=== PATIENT | female | born 1990 | race Caucasian/White ===

== ENCOUNTER → 2018-09-25 | Outpatient (CLI) | payer OTHER ==
[2018-09-25 12:30] LABS: BASO % 0.3 % (0.0-1.0); EOS # 0.1 10^3/uL (0.0-0.50); EOS % 1.1 % (0.0-3.0); HEMATOCRIT 40.1 % (36.0-47.0); HEMOGLOBIN 13.5 g/dl (12.0-15.5); IMMATURE GRANULOCYTE % 0.4 % (0-3.0); LYMPH # 2.3 10^3/uL (1.5-6.5); LYMPH % 19.6 % (24.0-44.0); MEAN CORPUSCULAR HEMOGLOBIN 29.2 pg (27.0-33.0); MEAN CORPUSCULAR HGB CONC 33.7 g/dl (32.0-36.5); MEAN CORPUSCULAR VOLUME 86.6 fl (80.0-96.0); MONO # 0.7 10^3/uL (0.0-0.8); MONO % 5.8 % (0.0-5.0); NEUTROPHILS # 8.6 10^3/uL (1.8-7.7); NEUTROPHILS % 72.8 % (36.0-66.0); PLATELET COUNT, AUTOMATED 220 10^3/uL (150-450); RED BLOOD COUNT 4.63 10^6/uL (4.00-5.40); RED CELL DISTRIBUTION WIDTH 12.2 % (11.5-14.5); WHITE BLOOD COUNT 11.8 10^3/uL (4.0-10.0)
[2018-09-25 13:13] LABS: ALBUMIN 3.7 GM/DL (3.2-5.2); ALBUMIN/GLOBULIN RATIO 1.03 (1.00-1.93); ALKALINE PHOSPHATASE 127 U/L (45-117); ALT/SGPT 18 U/L (12-78); ANION GAP 8 MEQ/L (8-16); AST/SGOT 10 U/L (7-37); BILIRUBIN,TOTAL 0.5 MG/DL (0.2-1.0); BLOOD UREA NITROGEN 9 MG/DL (7-18); CALCIUM LEVEL 9.2 MG/DL (8.5-10.1); CARBON DIOXIDE LEVEL 29 MEQ/L (21-32); CHLORIDE LEVEL 102 MEQ/L (98-107); CREATININE FOR GFR 0.71 MG/DL (0.55-1.30); FREE T4 1.14 NG/DL (0.76-1.46); GLOMERULAR FILTRATION RATE > 60.0 (>60); GLUCOSE, FASTING 95 MG/DL (70-100); POTASSIUM SERUM 3.8 MEQ/L (3.5-5.1); SODIUM LEVEL 139 MEQ/L (136-145); TOTAL PROTEIN 7.3 GM/DL (6.4-8.2)
== END ==
LOC: M WUC 09:47
DX: I10 Essential (primary) hypertension (principal)
CPT/HCPCS: 84443

== ENCOUNTER → 2018-11-03 | Outpatient (CLI) | payer OTHER ==
[~2018-11-03] MED LIST: /LABE20TA; ACET50TA PO; ALBU17IN2; COLA100C5 PO; FERR325T3 PO; IBUP80TA PO; LABE20TAB PO; LABE300T PO; LOESTRIN24 PO; MOTR200T44 PO; ORTHOEVRA TOPICAL; PERCOCET PO; PNV-CAP5 PO; SING10TA31; TRAN200T PO; TYLE167L PO; YAZ PO; ZYRT10TA6; [UNRECOGNIZED DRUG - CODE] TOPICALLY; [UNRECOGNIZED DRUG - OTHER]; [UNRECOGNIZED DRUG - OTHER] VAGINALLY
[2018-11-03 12:32] LABS: BASO % 0.3 % (0.0-1.0); EOS # 0.1 10^3/uL (0.0-0.50); EOS % 1.9 % (0.0-3.0); HEMATOCRIT 38.8 % (36.0-47.0); HEMOGLOBIN 13.1 g/dl (12.0-15.5); LYMPH # 1.8 10^3/uL (1.5-6.5); LYMPH % 28.9 % (24.0-44.0); MEAN CORPUSCULAR HEMOGLOBIN 29.1 pg (27.0-33.0); MEAN CORPUSCULAR HGB CONC 33.8 g/dl (32.0-36.5); MEAN CORPUSCULAR VOLUME 86.2 fl (80.0-96.0); MONO # 0.4 10^3/uL (0.0-0.8); MONO % 6.4 % (0.0-5.0); NEUTROPHILS # 3.9 10^3/uL (1.8-7.7); NEUTROPHILS % 62.3 % (36.0-66.0); PLATELET COUNT, AUTOMATED 217 10^3/uL (150-450); WHITE BLOOD COUNT 6.3 10^3/uL (4.0-10.0)
[2018-11-03 12:43] LABS: ALBUMIN 3.5 GM/DL (3.2-5.2); ALT/SGPT 17 U/L (12-78); BILIRUBIN,TOTAL 0.5 MG/DL (0.2-1.0); BLOOD UREA NITROGEN 10 MG/DL (7-18); CALCIUM LEVEL 8.5 MG/DL (8.5-10.1); CARBON DIOXIDE LEVEL 25 MEQ/L (21-32); CHLORIDE LEVEL 107 MEQ/L (98-107); CHOLESTEROL LEVEL 165 MG/DL (<200); CHOLESTEROL RISK RATIO 3.928 (<5); CREATININE FOR GFR 0.63 MG/DL (0.55-1.30); FREE T4 1.04 NG/DL (0.76-1.46); GLOMERULAR FILTRATION RATE > 60.0 (>60); GLUCOSE, FASTING 91 MG/DL (70-100); HDL CHOLESTEROL 42 MG/DL (>40); LDL CHOLESTEROL 104 MG/DL (<100); NON-HDL-C 123 MG/DL; POTASSIUM SERUM 3.9 MEQ/L (3.5-5.1); SODIUM LEVEL 142 MEQ/L (136-145); TRIGLYCERIDES LEVEL 94 MG/DL (<150)
[2018-11-03 13:34] LABS: HEMOGLOBIN A1c 5.3 %
== END ==
LOC: M WUC 08:49
PROVIDERS: ATTEND Physician Assistant Medical
DX: I10 Essential (primary) hypertension (principal); E66.01 Morbid (severe) obesity due to excess calories

== ENCOUNTER → 2018-12-03 | Outpatient (REF) | payer OTHER | LOC: M SFHCPLAZ 13:36 | PROVIDERS: ATTEND Physician Assistant Medical | DX: I10 Essential (primary) hypertension (principal) ==

== ENCOUNTER → 2018-12-23 | Outpatient (CLI) | payer OTHER ==
[2018-12-23 20:06] LABS: ALBUMIN 3.6 GM/DL (3.2-5.2); ALT/SGPT 19 U/L (12-78); BILIRUBIN,TOTAL 0.1 MG/DL (0.2-1.0); BLOOD UREA NITROGEN 16 MG/DL (7-18); CALCIUM LEVEL 8.8 MG/DL (8.5-10.1); CARBON DIOXIDE LEVEL 27 MEQ/L (21-32); CHLORIDE LEVEL 106 MEQ/L (98-107); GLOMERULAR FILTRATION RATE > 60.0 (>60); GLUCOSE, FASTING 117 MG/DL (70-100); POTASSIUM SERUM 3.8 MEQ/L (3.5-5.1); SODIUM LEVEL 141 MEQ/L (136-145); TOTAL PROTEIN 7.1 GM/DL (6.4-8.2)
== END ==
LOC: M WUC 16:43
PROVIDERS: ATTEND Physician Assistant Medical
DX: I10 Essential (primary) hypertension (principal)

== ENCOUNTER 2019-11-23 09:51 | Emergency (ER) | payer OTHER ==
[~2019-11-23] VITALS: Ht 162.6 cm; Wt 181.3 kg
[~2019-11-23 09:51] MED LIST changes: -/LABE20TA; -ACET50TA PO; +LABE1TAB11; +LABE200T13 PO; -LABE20TAB PO; +MAPA500T17 PO; +OXYC1TAB23 PO
[2019-11-23] MEDS ORDERED: LABE10TAB (09:59)
[2019-11-23] MEDS ORDERED: CHLO125TA (09:59)
[2019-11-23] MEDS ORDERED: AMLO5TAB6 (09:59)
[2019-11-23] MEDS ORDERED: CLINDAMYCIN 900 MG in IV 1 EA IV ONE (11:00)
[2019-11-23 11:34] LABS: BASO % 0.3 % (0.0-1.0); EOS # 0.1 10^3/uL (0.0-0.5); EOS % 1.2 % (0.0-3.0); HEMATOCRIT 36.9 % (36.0-47.0); HEMOGLOBIN 12.3 g/dl (12.0-15.5); LYMPH # 2.1 10^3/uL (1.5-5.0); LYMPH % 22.4 % (24.0-44.0); MEAN CORPUSCULAR HEMOGLOBIN 29.3 pg (27.0-33.0); MEAN CORPUSCULAR HGB CONC 33.3 g/dl (32.0-36.5); MEAN CORPUSCULAR VOLUME 87.9 fl (80.0-96.0); MONO # 0.5 10^3/uL (0.0-0.8); MONO % 5.2 % (0.0-5.0); NEUTROPHILS # 6.7 10^3/uL (1.5-8.5); NEUTROPHILS % 70.6 % (36.0-66.0); PLATELET COUNT, AUTOMATED 221 10^3/uL (150-450); WHITE BLOOD COUNT 9.4 10^3/uL (4.0-10.0)
[2019-11-23 11:57] VITALS: BP 185/94
[2019-11-23 12:00] LABS: BLOOD UREA NITROGEN 7 MG/DL (7-18); C REACTIVE PROTEIN QUANTITATIV 2.09 MG/DL (0.00-0.30); CARBON DIOXIDE LEVEL 26 MEQ/L (21-32); CHLORIDE LEVEL 106 MEQ/L (98-107); CREATININE FOR GFR 0.66 MG/DL (0.55-1.30); GLOMERULAR FILTRATION RATE > 60.0 (>60); GLUCOSE, FASTING 86 MG/DL (70-100); POTASSIUM SERUM 3.8 MEQ/L (3.5-5.1); SODIUM LEVEL 139 MEQ/L (136-145)
[2019-11-23 12:10] LABS: ERYTHROCYTE SEDIMENTATION RATE 30 mm/hr (0-20)
[2019-11-23] MEDS ORDERED: CLIN150C14 PO (12:27)
[2019-11-23] MEDS ORDERED: POLYSPORIN TOPICAL OINTMENT 15GM TOP ONE (12:45)
== END 2019-11-23 11:50 | disposition home or self-care (01) ==
LOC: M ED 09:51
DX: L03.311 Cellulitis of abdominal wall (principal); I10 Essential (primary) hypertension; Z88.8 Allergy status to other drugs, medicaments and biological substances; Z79.899 Other long term (current) drug therapy

== ENCOUNTER 2020-04-21 14:14 | Emergency (ER) | payer OTHER ==
[~2020-04-21] VITALS: Ht 162.6 cm; Wt 175.9 kg
[~2020-04-21 14:14] MED LIST changes: +AMLO1TAB24; +CHLO125TA; +CLIN150C15 PO; +LABE100T4
[2020-04-21] MEDS ORDERED: CHLORTHALIDONE 25 MG TAB PO ONE (15:00)
[2020-04-21] MEDS ORDERED: LABETALOL 100MG TAB PO ONE (15:00)
[2020-04-21] MEDS ORDERED: amLODIPine 5 MG TAB PO ONE (15:00)
[2020-04-21] MEDS ORDERED: ACETAMINOPHEN 500 MG TAB PO ONE (15:15)
[2020-04-21] MEDS ORDERED: IBUPROFEN 800 MG TAB PO ONE (15:15)
[2020-04-21 15:17] VITALS: BP 197/108
[2020-04-21] MEDS ORDERED: AMOX500C PO (16:34)
[2020-04-21 16:39] VITALS: BP 152/84
--- NOTE | 2020-04-21 23:00 | REP ---
REASON: Dyspnea and fever. There is a somewhat patchy irregular opacity in the right upper lobe, which measures [address] are otherwise clear, and the pleural angles are sharp. The heart is not enlarged, and the osseous structures are normal. IMPRESSION: Right upper lobe opacity, as described above. Etiology uncertain. Correlate clinically. Early pneumonia versus atelectasis is likely. Electronically Signed by Oscar Jon DO 04/22/2020 11:14 A
--- NOTE | 2020-04-22 14:00 | ED PDOC ---
Post-Departure Follow-Up alexy neff faxed formal report of cxr for fu Cristi Sy MD Apr 22, 2020 14:00
== END 2020-04-21 16:54 | disposition home or self-care (01) ==
LOC: M ED 14:14
DX: J18.9 Pneumonia, unspecified organism (principal); I10 Essential (primary) hypertension; J45.909 Unspecified asthma, uncomplicated; Z90.89 Acquired absence of other organs; Z79.899 Other long term (current) drug therapy; Z88.1 Allergy status to other antibiotic agents
CPT/HCPCS: 71045; 87486; 87581; 87633; 87798; 87880; 99284; U0003

== ENCOUNTER → 2020-05-05 | Outpatient (CLI) | payer OTHER ==
[~2020-05-05] MED LIST changes: +AMOX500C PO
--- NOTE | 2020-05-05 14:10 | REPPI ---
REASON: Followup. PRIORS: The latest prior for comparison is a portable examination of 04/21/2020 showing an irregular right upper lobe opacity. PA and lateral view of the chest were obtained today with a PA view having a much better detail than the prior portable exam. The irregular right upper lobe density persists. Contrast enhanced chest CT is warranted. Electronically Signed by Oscar Jon DO 05/05/2020 05:04 P
== END ==
LOC: M PLAIMG 10:53
PROVIDERS: ATTEND Physician Assistant Medical
DX: J18.9 Pneumonia, unspecified organism (principal)

== ENCOUNTER → 2020-08-16 | Outpatient (REF) | payer OTHER ==
[~2020-08-16] MED LIST changes: +CLIN150C14 PO; -CLIN150C15 PO; -LABE100T4; +LABE10TAB
== END ==
LOC: M SFHCPLAZ 17:14
PROVIDERS: ATTEND Physician Assistant
DX: L73.2 Hidradenitis suppurativa (principal)

== ENCOUNTER → 2021-05-17 | Outpatient (CLI) | payer OTHER ==
[~2021-05-17] MED LIST changes: -CLIN150C14 PO; +CLIN150C15 PO; +LABE100T4; -LABE10TAB
--- NOTE | 2021-05-17 09:51 | REP ---
INDICATION: ESSENTIAL HYPERTENSION COMPARISON: 05/05/2020 TECHNIQUE: PA and lateral. FINDINGS: The mediastinum and cardiac silhouette are normal. The lung st are clear and without acute consolidation, effusion, or pneumothorax. The skeletal structures are intact and normal. IMPRESSION: No acute cardiopulmonary process. <Electronically signed by Domenic Henao > 05/17/21 0904
[2021-05-17 10:50] LABS: BASO % 0.5 % (0.0-1.0); EOS # 0.1 10^3/uL (0.0-0.5); EOS % 1.5 % (0.0-3.0); HEMATOCRIT 37.4 % (36.0-47.0); HEMOGLOBIN 12.7 g/dl (12.0-15.5); LYMPH # 1.9 10^3/uL (1.5-5.0); LYMPH % 23.8 % (24.0-44.0); MEAN CORPUSCULAR HEMOGLOBIN 30.1 pg (27.0-33.0); MEAN CORPUSCULAR VOLUME 88.6 fl (80.0-96.0); MONO # 0.5 10^3/uL (0.0-0.8); MONO % 5.8 % (2.0-8.0); NEUTROPHILS # 5.4 10^3/uL (1.5-8.5); PLATELET COUNT, AUTOMATED 211 10^3/uL (150-450); RED BLOOD COUNT 4.22 10^6/uL (4.00-5.40); WHITE BLOOD COUNT 7.9 10^3/uL (4.0-10.0)
== END ==
LOC: M PLAIMG 08:55
PROVIDERS: ATTEND Physician Assistant Medical
DX: I10 Essential (primary) hypertension (principal)

== ENCOUNTER → 2021-11-23 | Outpatient (REF) | payer OTHER ==
[~2021-11-23] MED LIST changes: -CLIN150C15 PO; +CLIN150C17 PO
== END ==
LOC: M SFHCPLAZ 12:41
PROVIDERS: ATTEND Physician Assistant
DX: R09.81 Nasal congestion (principal)

== ENCOUNTER → 2022-04-30 | Outpatient (CLI) | payer OTHER | LOC: M PLALAB 14:15 | PROVIDERS: ATTEND Physician Assistant | DX: R05.9 Cough, unspecified (principal) ==

== ENCOUNTER → 2022-04-30 | Outpatient (REF) | payer OTHER | LOC: M SFHCPLAZ 17:06 | PROVIDERS: ATTEND Physician Assistant | DX: J00 Acute nasopharyngitis [common cold] (principal) ==

== ENCOUNTER 2022-08-01 09:59 | Emergency (ER) | payer OTHER ==
[~2022-08-01] VITALS: Ht 162.6 cm; Wt 179.5 kg
[~2022-08-01 09:59] MED LIST changes: -LABE100T4; +LABE100T6
[2022-08-01] MEDS ORDERED: FLUTISP (10:06)
[2022-08-01] MEDS ORDERED: CLIN-250 (10:06)
[2022-08-01] MEDS ORDERED: ALBU2.5V10 (10:06)
[2022-08-01] MEDS ORDERED: ALBU8.5H (10:06)
[2022-08-01] MEDS ORDERED: IBUP200T46 PO (10:07)
[2022-08-01] MEDS ORDERED: AUGMENTIN 875 MG TAB PO ONE (12:00)
[2022-08-01] MEDS ORDERED: AMOX875T2 PO (12:15)
[2022-08-01] MEDS ORDERED: HYDR-3713 PO (12:15)
[2022-08-01] MEDS ORDERED: LIDO2SOL17 SSP (12:15)
[2022-08-01] MEDS ORDERED: amLODIPine 5 MG TAB PO ONE (12:30)
[2022-08-01] MEDS ORDERED: CHLORTHALIDONE 25 MG TAB PO ONE (12:30)
[2022-08-01 12:46] VITALS: BP 219/133
[2022-08-01] MEDS ORDERED: LABETALOL 100MG TAB PO ONE (13:00)
[2022-08-01] MEDS ORDERED: KETOROLAC 60MG 2ML VIAL IM ONE (13:00)
[2022-08-01 13:29] VITALS: BP 182/128
[2022-08-01] MEDS ORDERED: ADULKIT XX (13:29)
== END 2022-08-01 13:36 | disposition home or self-care (01) ==
LOC: M ED 09:59
DX: K04.7 Periapical abscess without sinus (principal); R22.0 Localized swelling, mass and lump, head; I16.0 Hypertensive urgency; I10 Essential (primary) hypertension; Z88.1 Allergy status to other antibiotic agents; Z79.899 Other long term (current) drug therapy; Z79.2 Long term (current) use of antibiotics
CPT/HCPCS: 96372; 99283; J1885

== ENCOUNTER → 2023-01-16 | Outpatient (REF) | payer OTHER ==
[~2023-01-16] MED LIST changes: +ADULKIT XX; +ALBU2.5V10; +ALBU8.5H; +AMOX875T2 PO; +CLIN-250; +FLUTISP; +HYDR-3713 PO; +IBUP200T46 PO; +LIDO15SO4 SSP
== END ==
LOC: M SFHCPLAZ 13:00
PROVIDERS: ATTEND Physician Assistant Medical
DX: J06.0 Acute laryngopharyngitis (principal)

== ENCOUNTER 2023-06-17 19:42 | Emergency (ER) | payer OTHER ==
[~2023-06-17] VITALS: Ht 162.6 cm; Wt 171.0 kg
[~2023-06-17 19:42] MED LIST changes: +FLUT50SP17; -FLUTISP; +LIDO15SO SSP; -LIDO15SO4 SSP
[2023-06-18] MEDS ORDERED: NS 1,000 ML IV ONE (01:10)
[2023-06-18] MEDS ORDERED: KETOROLAC 30 MG/ML 1ML VIAL IV ONE (01:10)
[2023-06-18] MEDS ORDERED: dexAMETHasone 20MG/5ML VIAL IV ONE (01:10)
[2023-06-18] MEDS ORDERED: AMPICILLIN SOD/SULBACTAM SOD 3 GM in D5W MINI-BAG PLUS 100 ML IV ONE (01:10)
[2023-06-18 01:46] LABS: BASO % 0.2 % (0.0-1.0); EOS % 0.2 % (0.0-3.0); HEMATOCRIT 40.4 % (36.0-47.0); LYMPH # 1.5 10^3/uL (1.5-5.0); LYMPH % 11.7 % (24.0-44.0); MEAN CORPUSCULAR HEMOGLOBIN 30.6 pg (27.0-33.0); MEAN CORPUSCULAR HGB CONC 34.7 g/dl (32.0-36.5); MEAN CORPUSCULAR VOLUME 88.4 fl (80.0-96.0); MONO # 0.7 10^3/uL (0.0-0.8); MONO % 5.9 % (2.0-8.0); NEUTROPHILS # 10.3 10^3/uL (1.5-8.5); NEUTROPHILS % 81.7 % (36.0-66.0); PLATELET COUNT, AUTOMATED 217 10^3/uL (150-450); RED BLOOD COUNT 4.57 10^6/uL (4.00-5.40); WHITE BLOOD COUNT 12.6 10^3/uL (4.0-10.0)
[2023-06-18 01:58] LABS: ERYTHROCYTE SEDIMENTATION RATE 41 mm/hr (0-20)
[2023-06-18] MEDS ORDERED: ISOVUE-370 76% 100ML VIAL As Ordered ONE (02:09)
[2023-06-18 02:13] LABS: ALBUMIN 3.8 G/DL (3.2-5.2); ALKALINE PHOSPHATASE 106 U/L (46-116); ALT/SGPT 10 U/L (7.0-40); AST/SGOT < 8 U/L (<34); BILIRUBIN,DIRECT 0.3 MG/DL (<0.4); BILIRUBIN,TOTAL 0.8 MG/DL (0.3-1.2); TOTAL PROTEIN 7.2 G/DL (5.7-8.2)
[2023-06-18 02:55] VITALS: TEMP 99.6
[2023-06-18] MEDS ORDERED: AUGM500T34 PO (04:48)
[2023-06-18 04:56] VITALS: BP 168/92; O2SAT 97
== END 2023-06-18 04:58 | disposition home or self-care (01) ==
LOC: M ED 19:42
DX: K08.89 Other specified disorders of teeth and supporting structures (principal); L03.211 Cellulitis of face; I10 Essential (primary) hypertension; J45.909 Unspecified asthma, uncomplicated; R59.0 Localized enlarged lymph nodes; F17.290 Nicotine dependence, other tobacco product, uncomplicated; E66.9 Obesity, unspecified; Z68.44 Body mass index [BMI] 60.0-69.9, adult; Z79.899 Other long term (current) drug therapy; Z88.1 Allergy status to other antibiotic agents
CPT/HCPCS: 70491; 80047; 80076; 83605; 84702; 85025; 85652; 86140; 87040; 96365; 96375; 99284; J0295; J1100; J1885; Q9967